=== PATIENT | female | born 1995 | race Hispanic/Latino ===

== ENCOUNTER 2023-01-21 20:17 | Day surgery (SDC) | payer OTHER ==
[2023-01-21] MEDS ORDERED: hydrALAZINE 20 MG/ML VIAL SLOW IVP PRN (21:08)
== END 2023-01-21 23:30 | disposition home or self-care (01) ==
LOC: CSHLD/OP 20:17
PROVIDERS: ATTEND Obstetrics & Gynecology
DX: O47.1 False labor at or after 37 completed weeks of gestation (principal); O26.893 Other specified pregnancy related conditions, third trimester; R10.2 Pelvic and perineal pain; O36.63X0 Maternal care for excessive fetal growth, third trimester, not applicable or unspecified; O99.613 Diseases of the digestive system complicating pregnancy, third trimester; K21.9 Gastro-esophageal reflux disease without esophagitis; O99.283 Endocrine, nutritional and metabolic diseases complicating pregnancy, third trimester; E28.2 Polycystic ovarian syndrome; O99.891 Other specified diseases and conditions complicating pregnancy; H53.459 Other localized visual field defect, unspecified eye; Z3A.38 38 weeks gestation of pregnancy
CPT/HCPCS: 99282

== ENCOUNTER 2023-01-23 18:59 | Day surgery (SDC) | payer OTHER ==
[2023-01-23 19:34] VITALS: BMI 30.4
[2023-01-23] MEDS ORDERED: Lactated Ringer's 1,000 ML IV SCH (19:45)
[2023-01-23] MEDS ORDERED: hydrALAZINE 20 MG/ML VIAL SLOW IVP PRN (19:45)
== END 2023-01-23 22:09 | disposition home or self-care (01) ==
LOC: CSHLD/OP 18:59
PROVIDERS: ATTEND Obstetrics & Gynecology
DX: O46.93 Antepartum hemorrhage, unspecified, third trimester (principal); O99.891 Other specified diseases and conditions complicating pregnancy; H53.459 Other localized visual field defect, unspecified eye; O99.613 Diseases of the digestive system complicating pregnancy, third trimester; K21.9 Gastro-esophageal reflux disease without esophagitis; O99.283 Endocrine, nutritional and metabolic diseases complicating pregnancy, third trimester; E28.2 Polycystic ovarian syndrome; O36.63X0 Maternal care for excessive fetal growth, third trimester, not applicable or unspecified; Z3A.38 38 weeks gestation of pregnancy
CPT/HCPCS: 76819; 96360; 99283

== ENCOUNTER 2023-01-25 13:23 | Day surgery (SDC) | payer OTHER ==
[2023-01-25] MEDS ORDERED: hydrALAZINE 20 MG/ML VIAL SLOW IVP PRN (14:03)
== END 2023-01-25 18:20 | disposition home health service (06) ==
LOC: CSHSDC/OP 13:23
PROVIDERS: ATTEND Obstetrics & Gynecology
DX: Z36.89 Encounter for other specified antenatal screening (principal); O36.63X0 Maternal care for excessive fetal growth, third trimester, not applicable or unspecified; O41.93X0 Disorder of amniotic fluid and membranes, unspecified, third trimester, not applicable or unspecified; Z79.899 Other long term (current) drug therapy; Z3A.38 38 weeks gestation of pregnancy
CPT/HCPCS: 59025; 76819

== ENCOUNTER 2023-01-28 17:58 | Inpatient (IN) | payer MEDICAID, OTHER, SELFPAY ==
[~2023-01-28 17:58] MED LIST: Bupivacaine 0.25% HCL 30 ML VIAL ONE
[2023-01-28] MEDS ORDERED: Methylergonovine 0.2 MG/ML VIAL IM PRN (20:15)
[2023-01-28] MEDS ORDERED: hydrALAZINE 20 MG/ML VIAL SLOW IVP PRN (20:15)
[2023-01-28] MEDS ORDERED: Lidocaine 1% (PF) 30 ML VIAL SC PRN (20:15)
[2023-01-28] MEDS ORDERED: Docusate 100 MG CAP PO PRN (20:15)
[2023-01-28] MEDS ORDERED: Ondansetron PF 4 MG/2 ML Vial IVP PRN (20:15)
[2023-01-28] MEDS ORDERED: Tranexamic Acid 1,000 MG/10 ML VIAL IVP PRN (20:15)
[2023-01-28] MEDS ORDERED: Diphenoxylate HCl/Atropine Tablet PO PRN (20:15)
[2023-01-28] MEDS ORDERED: Ibuprofen 800 MG TAB PO PRN (20:15)
[2023-01-28] MEDS ORDERED: Carboprost 250 MCG/ML AMP IM PRN (20:15)
[2023-01-28] MEDS ORDERED: NS w/ Oxytocin 30 units 500 ML IV SCH (20:15)
[2023-01-28] MEDS ORDERED: Promethazine HCl 25 MG/ML VIAL IM PRN (20:15)
[2023-01-28] MEDS ORDERED: Misoprostol 200 MCG TAB PR PRN (20:15)
[2023-01-28] MEDS: Lactated Ringer's 1,000 ML IV SCH (20:30)
[2023-01-28 20:44] LABS: Hemoglobin 12.5 g/dL (12.0-15.5); Mean Corpuscular HGB CONC 33.2 g/dL (32.0-36.0); Mean Corpuscular Hemoglobin 32.5 pg (27.0-33.0); Mean Corpuscular Volume 97.9 fl (81.6-98.3); Mean Platelet Volume 11.9 fl (7.4-10.4); Platelet Count 236 10x3/uL (150-450); RBC Distribution Width 13.5 % (11.5-14.5); Red Blood Cell (RBC) Count 3.85 10x6/uL (3.90-5.03); White Blood Cell (WBC) Count 10.7 10x3/uL (3.5-10.5)
[2023-01-28 21:05] LABS: #Basophils 0.1 10x3/uL (0.0-0.2); #Eosinphils 0.1 10x3/uL (0.0-0.5); #Monocytes 0.9 10x3/uL (0.0-1.1); #Neutrophils 6.9 10x3/uL (1.5-8.4); %Basophils 0.5 % (0.0-2.0); %Eosinophils 0.8 % (0.0-6.0); %Lymphocytes 23.7 % (18.0-47.0); %Monocytes 8.4 % (0.0-10.0); %Neutrophils 65.6 % (40.0-75.0); Hemoglobin 12.7 g/dL (12.0-15.5); Mean Corpuscular Hemoglobin 32.2 pg (27.0-33.0); Mean Corpuscular Volume 97.7 fl (81.6-98.3); Mean Platelet Volume 11.7 fl (7.4-10.4); Platelet Count 251 10x3/uL (150-450); RBC Distribution Width 13.4 % (11.5-14.5); Red Blood Cell (RBC) Count 3.94 10x6/uL (3.90-5.03); White Blood Cell (WBC) Count 10.6 10x3/uL (3.5-10.5)
[2023-01-28 21:11] LABS: ALT (SGPT) 14 U/L (8-55); AST (SGOT) 27 U/L (5-34); Albumin 3.6 g/dL (3.5-5.0); Alkaline Phosphatase 252 U/L (40-110); Anion Gap 16 mmol/L (10-20); BUN (Urea Nitrogen) 11 mg/dL (7.0-18.7); Bilirubin, Total 0.2 mg/dL (0.2-1.2); Calc. Creatinine Clearance 0 mL/min (70-130); Calcium 9.1 mg/dL (7.8-10.44); Carbon Dioxide 18 mmol/L (22-29); Chloride 106 mmol/L (98-107); Estimated GFR 124; Globulin 2.5 g/dL (2.4-3.5); Glucose 69 mg/dL (70-105); Protein, Total 6.1 g/dL (6.0-8.3); Sodium 136 mmol/L (136-145)
[2023-01-28] MEDS: Misoprostol 100 MCG TAB VAG SCH (21:30)
[2023-01-28 21:55] LABS: HBSAg Index 0.15 S/CO (0-0.99); Hep B Surf Ag - L&D Non-Reactive S/CO (NonReactive)
[2023-01-28 21:56] LABS: Syphilis Antibody Nonreactive (Nonreactive); Syphilis Antibody Index 0.04 S/CO (<1.00 Non-Reactive)
[2023-01-28 22:01] LABS: Creatinine, Urine 27.47 mg/dL (47-110); Protein, Urine Random Quant Less than 10 mg/dL (1-14)
[2023-01-29] MEDS ORDERED: Misoprostol 100 MCG TAB VAG SCH
[2023-01-29] MEDS: Misoprostol 100 MCG TAB VAG SCH ×5 (01:09→19:31)
[2023-01-29] MEDS: Lactated Ringer's 1,000 ML IV SCH ×2 (03:17→19:31)
[2023-01-29] MEDS ORDERED: Fentanyl 2 mcg/Bup 0.1% Cadd 100 ML ONE (10:19)
[2023-01-29] MEDS ORDERED: Boostrix 0.5 ML (Tdap) VIAL (>/=7 yrs of age) IM ONE (19:32)
[2023-01-29] MEDS ORDERED: Lanolin Ointment 7 GM TUBE TOP PRN (19:32)
[2023-01-29] MEDS ORDERED: Bisacodyl 10 MG SUPP PR PRN (19:32)
[2023-01-29] MEDS ORDERED: Preparation H Ointment 28 GM TUBE PR PRN (19:32)
[2023-01-29] MEDS ORDERED: Benzocaine-Menthol 82.5 ML CAN TOP PRN (19:32)
[2023-01-29] MEDS ORDERED: Milk Of Magnesia 30 ML UDCUP PO PRN (19:32)
[2023-01-29] MEDS ORDERED: hydrALAZINE 20 MG/ML VIAL SLOW IVP PRN (19:32)
[2023-01-29] MEDS: Docusate 100 MG CAP PO SCH (21:32)
[2023-01-29] MEDS: Ibuprofen 800 MG TAB PO SCH (21:32)
[2023-01-30] MEDS: Ibuprofen 800 MG TAB PO SCH ×3 (05:15→22:14)
[2023-01-30] MEDS: Ferrous Sulfate 325 MG TAB PO SCH ×2 (08:11→15:33)
[2023-01-30] MEDS: Prenatal Vitamin 1 TAB PO SCH (09:32)
[2023-01-30] MEDS: Docusate 100 MG CAP PO SCH ×2 (09:32→22:14)
[2023-01-31] MEDS: Ibuprofen 800 MG TAB PO SCH (05:32)
[2023-01-31] MEDS: Ferrous Sulfate 325 MG TAB PO SCH (06:53)
[2023-01-31] MEDS: Prenatal Vitamin 1 TAB PO SCH (07:26)
[2023-01-31] MEDS: Docusate 100 MG CAP PO SCH (07:26)
[2023-01-31 07:46] VITALS: BP 119/76; TEMP 97.3
== END 2023-01-31 13:30 | disposition home or self-care (01) | DRG 807 ==
LOC: CSHLD 17:58 → CSHPED 01-29 21:43
PROVIDERS: ADMIT Family Medicine; ATTEND Family Medicine
PROC: 10E0XZZ Delivery of Products of Conception, External Approach (ICD-10-PCS; principal; 2023-01-29)
PROC: 10907ZC Drainage of Amniotic Fluid, Therapeutic from Products of Conception, Via Natural or Artificial Opening (ICD-10-PCS; 2023-01-29)
PROC: 3E0P7VZ Introduction of Hormone into Female Reproductive, Via Natural or Artificial Opening (ICD-10-PCS; 2023-01-29)
PROC: 0HQ9XZZ Repair Perineum Skin, External Approach (ICD-10-PCS; 2023-01-29)
PROC: 0UQMXZZ Repair Vulva, External Approach (ICD-10-PCS; 2023-01-29)
DX: O36.63X0 Maternal care for excessive fetal growth, third trimester, not applicable or unspecified (principal); Z37.0 Single live birth; Z3A.39 39 weeks gestation of pregnancy; O77.0 Labor and delivery complicated by meconium in amniotic fluid; O70.0 First degree perineal laceration during delivery; O71.82 Other specified trauma to perineum and vulva
CPT/HCPCS: 36415; 51702; 80053; 82570; 84156; 85027; 86780; 86850; 86900; 86901; 87340; J7120; S0020